=== PATIENT | male | born 1965 | race Two or more races ===

== ENCOUNTER 2023-07-26 08:17 | Outpatient (REF) | payer MEDICAID, SELFPAY ==
[2023-07-26 11:49] LABS: MANUAL DIFF FLAG NO
[2023-07-26 11:58] LABS: Basophils Absolute Auto 0.1 X10*3/uL (0.0-0.2); Basophils Percent Auto 0.7 % (0-2); Eosinophils Absolute Auto 0.5 X10*3/uL (0.0-0.4); Eosinophils Percent Auto 5.7 % (0-4); Hematocrit 31.3 % (42.0-52.0); Imm Gran Abs Auto 0.03 X10*3/uL (0.00-0.03); Imm Gran Pct Auto 0.4 % (0.0-0.4); Lymphocytes Percent Auto 24.3 % (20-40); Mean Corpuscular HGB Conc 28.8 g/dl (31.0-36.0); Mean Corpuscular Hemoglobin 20.3 pg (27.0-33.0); Mean Corpuscular Volume 70.5 fL (80.0-98.0); Mean Platelet Volume 10.7 fL (9.4-12.4); Monocytes Absolute Auto 0.7 X10*3/uL (0.1-1.2); Monocytes Percent Auto 8.3 % (2-11); Neutrophils Absolute Auto 4.9 x10*3/uL (2.0-8.3); Neutrophils Percent Auto 60.6 % (45-73); Platelet Count 151 X10*3/uL (160-400); Red Blood Count 4.44 X10*6/uL (4.60-5.80); Red Cell Distribution Width 17.6 % (11.0-16.0); White Blood Count 8.1 X10*3/uL (4.8-10.8)
[2023-07-26 12:39] LABS: Creatinine Urine 146.67 mg/dL; Microalbum/Creatinine Ratio Ur 8.8 ug/mg cr (<30)
[2023-07-26 12:45] LABS: Estimated Average Glucose 163 mg/dL; Hemoglobin A1c % 7.3 % (<6.0)
[2023-07-26 12:56] LABS: Alanine Aminotransferase 14 U/L (0-40); Albumin Level 4.2 g/dL (3.5-5.0); Alkaline Phosphatase 93 U/L (39-117); Anion Gap 14 (12-20); Aspartate Amino Transferase 20 U/L (5-37); Bilirubin Direct < 0.2 mg/dL (0.0-0.5); Bilirubin Total 0.2 mg/dL (0.0-1.0); Blood Urea Nitrogen 15 mg/dL (9-16); Calcium 9.6 mg/dL (8.4-10.2); Carbon Dioxide 26 mmol/L (22-29); Chloride 104 mmol/L (96-108); Cholesterol 142 mg/dL (<200); Estimated Glomerular Filt Rate > 60; Glucose Random 137 mg/dL (60-115); HDL Cholesterol 54 mg/dL (>40); LDL Cholesterol Calculated 74 mg/dL (<100); Potassium 4.6 mmol/L (3.3-5.1); Sodium 139 mmol/L (135-145); Total Protein 7.6 g/dL (6.5-8.0); Triglycerides 72 mg/dL (<150)
[2023-07-26 13:20] LABS: TSH reflex Free T4 1.25 uIU/mL (0.32-4.0)
== END 2023-07-26 08:18 | disposition home or self-care (01) ==
LOC: HO.HHCL 08:17
PROVIDERS: Visit Provider Internal Medicine
DX: E11.9 Type 2 diabetes mellitus without complications (principal)
CPT/HCPCS: 36415; 80048; 80061; 80076; 82043; 82570; 83036; 84443; 85025

== ENCOUNTER 2023-08-16 09:56 | Outpatient (REF) | payer MEDICAID, SELFPAY ==
[2023-08-17 03:50] LABS: ~HepC Num1 0.19 S/CO (0.00-0.79); ~Hepatitis C Antibody Nonreactive (Nonreactive)
== END 2023-08-16 09:57 | disposition home or self-care (01) ==
LOC: HO.CHCLDS 09:56
PROVIDERS: Visit Provider Family Medicine
DX: Z11.3 Encounter for screening for infections with a predominantly sexual mode of transmission (principal)
CPT/HCPCS: 36415; 86803

== ENCOUNTER 2023-08-19 09:57 | Outpatient (REF) | payer MEDICAID, SELFPAY ==
--- NOTE | ~2023-08-19 | XR_ITS ---
EXAMINATION: XR LUMBAR SPINE, LEFT KNEE, CERVICAL SPINE, LEFT FOOT CLINICAL INFORMATION: Pain lumbar back, left knee, neck, foot, chronic. COMPARISON: None available. TECHNIQUE: 3 views of the cervical spine, 3 views of the lumbar spine, 5 views of the left knee, and 3 views of the left foot were obtained.. FINDINGS: Left Knee: Trace joint effusion. Extensive vascular calcifications. Small quadriceps spur. Minimal tricompartmental degenerative changes minimal medial joint space narrowing. Left Foot: Small plantar and dorsal calcaneal spurs. Extensive vascular calcifications. Extensive lucent process likely related to postsurgical change involves the distal aspect of the first metatarsal as well as the proximal phalanx of the great toe. Hypertrophic change along the lateral aspect of the first metatarsal head. 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 Extensive atherosclerotic aortoiliac calcifications. Degenerative changes on limited views of the lower thoracic spine. Moderate multilevel lumbar spondylosis. Mild loss of disc space height at L4-L5 and L5-S1. Cervical Spine: Straightening of the normal cervical lordosis. Grade 1 anterolisthesis of C2 on C3. Advanced degenerative changes with loss of disc space height and hypertrophic change at C5-C6. C7 is obscured by overlying soft tissues. XR/XR cervical spine 3V IMPRESSION: 1. Minimal tricompartmental degenerative changes left knee. 2. Extensive lucent process likely related to postsurgical change involves the distal aspect of the first metatarsal as well as the proximal phalanx of the great toe. Hypertrophic change along the lateral aspect of the first metatarsal head. Superimposed process is difficult to exclude without prior images for direct correlation. Correlation with clinical and surgical history recommended to determine further management. Direct correlation with prior images is recommended and if prior images are provided, an addendum will be dictated. In the absence of prior images, CT scan or MRI should be considered for further evaluation. 3. Moderate multilevel lumbar spondylosis. 4. Advanced degenerative changes at C5-C6.
--- NOTE | ~2023-08-19 | XR_ITS ---
EXAMINATION: XR LUMBAR SPINE, LEFT KNEE, CERVICAL SPINE, LEFT FOOT CLINICAL INFORMATION: Pain lumbar back, left knee, neck, foot, chronic. COMPARISON: None available. TECHNIQUE: 3 views of the cervical spine, 3 views of the lumbar spine, 5 views of the left knee, and 3 views of the left foot were obtained.. FINDINGS: Left Knee: Trace joint effusion. Extensive vascular calcifications. Small quadriceps spur. Minimal tricompartmental degenerative changes minimal medial joint space narrowing. Left Foot: Small plantar and dorsal calcaneal spurs. Extensive vascular calcifications. Extensive lucent process likely related to postsurgical change involves the distal aspect of the first metatarsal as well as the proximal phalanx of the great toe. Hypertrophic change along the lateral aspect of the first metatarsal head. Superimposed process is difficult to exclude without prior images for direct correlation Lumbar Spine: Facet arthritis in the [id number] lumbar spine. Extensive atherosclerotic aortoiliac calcifications. Degenerative changes on limited views of the lower thoracic spine. Moderate multilevel lumbar spondylosis. Mild loss of disc space height at L4-L5 and L5-S1. Cervical Spine: Straightening of the normal cervical lordosis. Grade 1 anterolisthesis of C2 on C3. Advanced degenerative changes with loss of disc space height and hypertrophic change at C5-C6. C7 is obscured by overlying soft tissues. XR/XR knee LT 4V IMPRESSION: 1. Minimal tricompartmental degenerative changes left knee. 2. Extensive lucent process likely related to postsurgical change involves the distal aspect of the first metatarsal as well as the proximal phalanx of the great toe. Hypertrophic change along the lateral aspect of the first metatarsal head. Superimposed process is difficult to exclude without prior images for direct correlation. Correlation with clinical and surgical history recommended to determine further management. Direct correlation with prior images is recommended and if prior images are provided, an addendum will be dictated. In the absence of prior images, CT scan or MRI should be considered for further evaluation. 3. Moderate multilevel lumbar spondylosis. 4. Advanced degenerative changes at C5-C6.
--- NOTE | ~2023-08-19 | XR_ITS ---
EXAMINATION: XR LUMBAR SPINE, LEFT KNEE, CERVICAL SPINE, LEFT FOOT CLINICAL INFORMATION: Pain lumbar back, left knee, neck, foot, chronic. COMPARISON: None available. TECHNIQUE: 3 views of the cervical spine, 3 views of the lumbar spine, 5 views of the left knee, and 3 views of the left foot were obtained.. FINDINGS: Left Knee: Trace joint effusion. Extensive vascular calcifications. Small quadriceps spur. Minimal tricompartmental degenerative changes minimal medial joint space narrowing. Left Foot: Small plantar and dorsal calcaneal spurs. Extensive vascular calcifications. Extensive lucent process likely related to postsurgical change involves the distal aspect of the first metatarsal as well as the proximal phalanx of the great toe. Hypertrophic change along the lateral aspect of the first metatarsal head. Superimposed process is difficult to exclude without prior images for direct correlation Lumbar Spine: Facet arthritis in the [id number] lumbar spine. Extensive atherosclerotic aortoiliac calcifications. Degenerative changes on limited views of the lower thoracic spine. Moderate multilevel lumbar spondylosis. Mild loss of disc space height at L4-L5 and L5-S1. Cervical Spine: Straightening of the normal cervical lordosis. Grade 1 anterolisthesis of C2 on C3. Advanced degenerative changes with loss of disc space height and hypertrophic change at C5-C6. C7 is obscured by overlying soft tissues. XR/XR lumbar spine 2-3V IMPRESSION: 1. Minimal tricompartmental degenerative changes left knee. 2. Extensive lucent process likely related to postsurgical change involves the distal aspect of the first metatarsal as well as the proximal phalanx of the great toe. Hypertrophic change along the lateral aspect of the first metatarsal head. Superimposed process is difficult to exclude without prior images for direct correlation. Correlation with clinical and surgical history recommended to determine further management. Direct correlation with prior images is recommended and if prior images are provided, an addendum will be dictated. In the absence of prior images, CT scan or MRI should be considered for further evaluation. 3. Moderate multilevel lumbar spondylosis. 4. Advanced degenerative changes at C5-C6.
--- NOTE | ~2023-08-19 | XR_ITS ---
EXAMINATION: XR LUMBAR SPINE, LEFT KNEE, CERVICAL SPINE, LEFT FOOT CLINICAL INFORMATION: Pain lumbar back, left knee, neck, foot, chronic. COMPARISON: None available. TECHNIQUE: 3 views of the cervical spine, 3 views of the lumbar spine, 5 views of the left knee, and 3 views of the left foot were obtained.. FINDINGS: Left Knee: Trace joint effusion. Extensive vascular calcifications. Small quadriceps spur. Minimal tricompartmental degenerative changes minimal medial joint space narrowing. Left Foot: Small plantar and dorsal calcaneal spurs. Extensive vascular calcifications. Extensive lucent process likely related to postsurgical change involves the distal aspect of the first metatarsal as well as the proximal phalanx of the great toe. Hypertrophic change along the lateral aspect of the first metatarsal head. Superimposed process is difficult to exclude without prior images for direct correlation Lumbar Spine: Facet arthritis in the [id number] lumbar spine. Extensive atherosclerotic aortoiliac calcifications. Degenerative changes on limited views of the lower thoracic spine. Moderate multilevel lumbar spondylosis. Mild loss of disc space height at L4-L5 and L5-S1. Cervical Spine: Straightening of the normal cervical lordosis. Grade 1 anterolisthesis of C2 on C3. Advanced degenerative changes with loss of disc space height and hypertrophic change at C5-C6. C7 is obscured by overlying soft tissues. XR/XR foot LT min 3V IMPRESSION: 1. Minimal tricompartmental degenerative changes left knee. 2. Extensive lucent process likely related to postsurgical change involves the distal aspect of the first metatarsal as well as the proximal phalanx of the great toe. Hypertrophic change along the lateral aspect of the first metatarsal head. Superimposed process is difficult to exclude without prior images for direct correlation. Correlation with clinical and surgical history recommended to determine further management. Direct correlation with prior images is recommended and if prior images are provided, an addendum will be dictated. In the absence of prior images, CT scan or MRI should be considered for further evaluation. 3. Moderate multilevel lumbar spondylosis. 4. Advanced degenerative changes at C5-C6.
== END 2023-08-19 09:58 | disposition home or self-care (01) ==
LOC: HO.XRAY 09:57
PROVIDERS: PCP Family Medicine; Visit Provider Family Medicine
DX: M54.50 Low back pain, unspecified (principal); M54.2 Cervicalgia; M25.562 Pain in left knee; M79.672 Pain in left foot; G89.29 Other chronic pain
CPT/HCPCS: 72040; 72100; 73564; 73630

== ENCOUNTER 2023-09-25 10:50 | Outpatient (REF) | payer MEDICAID, SELFPAY ==
[2023-09-27 22:33] LABS: TS Negative Control Passed; TS Panel A 3; TS Panel B 6; TS Positive Control Passed; TSpotTB Borderline (Negative)
== END 2023-09-25 10:51 | disposition home or self-care (01) ==
LOC: HO.HHCL 10:50
PROVIDERS: Visit Provider Family Medicine
DX: Z11.1 Encounter for screening for respiratory tuberculosis (principal)
CPT/HCPCS: 36415; 86481

== ENCOUNTER 2023-10-02 14:00 | Outpatient (REF) | payer MEDICAID, SELFPAY ==
--- NOTE | ~2023-10-02 | XR_ITS ---
EXAMINATION: XR CHEST 2 VIEW CLINICAL INFORMATION: Cough, positive PPD COMPARISON: None TECHNIQUE: PA and lateral views of the chest obtained. FINDINGS: The lungs are clear. There are no pleural effusions. The cardiomediastinal silhouette is normal. XR/XR chest 2V IMPRESSION: No acute cardiopulmonary disease.
== END 2023-10-02 14:01 | disposition home or self-care (01) ==
LOC: HO.HHCX 14:00
PROVIDERS: Visit Provider Family Medicine
DX: R76.11 Nonspecific reaction to tuberculin skin test without active tuberculosis (principal)
CPT/HCPCS: 71046